=== PATIENT | female | born 2000 | race Caucasian/White ===

== ENCOUNTER 2024-03-24 23:02 | Emergency (ER) | payer BC, SELFPAY ==
[2024-03-24 23:06] VITALS: BP 110/88; PULSE 137; RESP 15; TEMP 36.4; O2SAT 99
--- NOTE | 2024-03-24 23:31 | ECG_ITS ---
Test Date: 2024-03-24 23:19:38 Measurements Intervals [place] Rate: 157 P: 66 SC: 113 QRS: 77 QRSD: 87 T: 55 QT: 309 QTc: 500 Interpretive Statements SINUS TACHYCARDIA WITH SHORT SC INTERVAL, POSSIBLE ATRIAL FLUTTER NONSPECIFIC ST & T-WAVE ABNORMALITY ABNORMAL RHYTHM ECG No previous ECG available for comparison Electronically Signed On 03-25-2024 22:51:41 [employer]PING ASSISTANT by Ana Ruelas M.D.
[2024-03-24 23:54] LABS: Basophils Absolute Auto 0.1 K/mm3 (0.0-0.1); Basophils Percent Auto 0.4 % (0.2-1.2); Eosinophils Percent Auto 0.1 % (0-4.4); Hematocrit 44.1 % (37.0-47.0); Immature Granulocyte Absolute 0.03 K/mm3 (0.00-0.031); Immature Granulocyte Percent A 0.2 % (0-0.5); Lymphocytes Absolute Auto 0.88 K/mm3 (0.9-3.2); Lymphocytes Percent Auto 6.1 % (18.3-44.2); Mean Corpuscular HGB Conc 36.3 g/dl (32-36); Mean Corpuscular Hemoglobin 30.8 pg (26-34); Mean Corpuscular Volume 84.8 fl (80-100); Mean Platelet Volume 10.1 fl (7.4-10.4); Monocytes Percent Auto 6.7 % (2.6-8.5); Neutrophils Absolute Auto 12.5 K/mm3 (1.3-6.7); Neutrophils Percent Auto 86.5 % (45.5-73.1); Platelet Count Result 290 k/mm3 (150-375); Red Cell Distribution Width 11.7 % (11.5-14.5); White Blood Count 14.4 K/mm3 (4.5-10.0)
[2024-03-24] MEDS: SODIUM CHLORIDE 0.9% IV 3,000 ML 999 ML IV CONT (23:56)
[2024-03-24] MEDS: ONDANSETRON INJ 4 MG/2 ML VIAL IV PUSH (23:56)
[2024-03-24] MEDS: FAMOTIDINE 20 MG/2 ML VIAL IV PUSH (23:56)
[2024-03-25 00:04] LABS: Alanine Aminotransferase 25 U/L (6-35); Albumin Level 4.9 g/dL (3.5-5.1); Alkaline Phosphatase 82 U/L (38-126); Anion Gap 12 mmol/L (4-12); Aspartate Amino Transferase 28 U/L (14-36); Bilirubin,Total 0.9 mg/dL (0.2-1.3); Blood Urea Nitrogen 18 mg/dL (7-17); Carbon Dioxide 22 mmol/L (22-30); Chloride 106 mmol/L (98-107); Estimated CRCL calculation 80 ml/min; Estimated Glomerular Filt Rate > 60; Glucose 149 mg/dL (65-110); Lipase 102 U/L (23-300); Sodium 140 mmol/L (137-145)
[2024-03-25 00:09] VITALS: BP 119/88; PULSE 102; RESP 14; O2SAT 100
[2024-03-25 00:31] LABS: Influenza A QL RT-PCR Negative (Negative); Influenza B QL RT-PCR Negative (Negative); RSV RNA, RT-PCR Negative (Negative); SARS-CoV-2 RNA PCR Negative (Negative)
--- NOTE | 2024-03-25 01:01 | ED_ITS ---
HPI - General Adult General Chief complaint: Nausea/Vomiting/Diarrhea Stated complaint: vomiting Time Seen by Provider: 03/24/24 23:25 History of Present Illness HPI narrative: This is a 23-year-old female presenting with 2 days of nausea vomiting diarrhea. Patient has been having URI symptoms for the last week. patient also has diffuse crampy associated with the diarrhea.Many members of her family have similar symptoms. She came to hospital because she was having intractable nausea and vomiting and diarrhea. No fevers chills, CP/JOSE DE JESUS, urinary symptoms. Related Data Allergies Allergy/AdvReac Type Severity Reaction Status Date / Time No Known Allergies Allergy Unverified 07/04/11 19:36 Exam 2 Narrative: APPEARANCE: Patient is actively vomiting Head: atraumatic. EYES: EOMI, NOSE: Atraumatic NECK: Trachea midline RESPIRATORY: No increased rate of breathing CTAB CARDIOVASCULAR: RRR, ABDOMINAL: soft, nontender no guarding or rebound MUSCULOSKELETAl: No obvious deformities NEURO: Alert. Moving 4/4 extremities SKIN:: Warm, dry. Normal color PSYCHIATRIC: Normal affect Course Vital Signs Vital signs: Vital Signs Temperature 97.6 F 03/24/24 23:06 Pulse Rate 137 H 03/24/24 23:06 Respiratory Rate 15 03/24/24 23:06 Blood Pressure 110/88 03/24/24 23:06 Pulse Oximetry 99 03/24/24 23:06 Oxygen Delivery Room Air 03/24/24 23:06 Temperature 99.4 F 03/25/24 01:51 Pulse Rate 108 H 03/25/24 01:51 Respiratory Rate 15 03/25/24 01:51 Blood Pressure 118/66 03/25/24 01:51 Pulse Oximetry 100 03/25/24 01:51 Oxygen Delivery Room Air 03/24/24 23:06 Medical Decision Making [facility] Narrative Medical decision making narrative: -Course: 23-year-old female presenting with diarrhea. Given fluid resuscitation antiemetics with improvement. Vital signs have improved Although she is still mildly tachycardic. Abdominal exam is benign. Patient now able tolerate p.o.. Patient be discharged home with antiemetics. Given return precautions for fevers, severe abdominal pain or intractable nausea vomiting. -DDX includes but is not limited to: Gastroenteritis, flu, COVID, viral syndrome colitis appendicitis gallbladder disease -Co-morbidities complicating care: anxiety -Independent interpretation of studies: labs reviewed -Dx tests considered but not ordered: CT a/p: benign abdominal exam. -Interventions:3 L normal saline, Zofran, Pepcid -Shared decision making / Disposition: discharge -RX Zofran Vital Signs Vital Signs: Vital Signs Temperature 97.6 F 03/24/24 23:06 Pulse Rate 137 H 03/24/24 23:06 Respiratory Rate 15 03/24/24 23:06 Blood Pressure 110/88 03/24/24 23:06 Pulse Oximetry 99 03/24/24 23:06 Oxygen Delivery Room Air 03/24/24 23:06 Temperature 99.4 F 03/25/24 01:51 Pulse Rate 108 H 03/25/24 01:51 Respiratory Rate 15 03/25/24 01:51 Blood Pressure 118/66 03/25/24 01:51 Pulse Oximetry 100 03/25/24 01:51 Oxygen Delivery Room Air 03/24/24 23:06 Lab Data 03/24/24 23:47 03/24/24 23:47 Labs: Lab Results 03/24/24 Range/Units 23:47 WBC 14.4 H (4.5-10.0) K/mm3 RBC 5.20 (4.2-5.4) M/mm3 Hgb 16.0 H (12.0-15.0) g/dL Hct 44.1 (37.0-47.0) % MCV 84.8 (80-100) fl MCH 30.8 (26-34) pg MCHC 36.3 H (32-36) g/dl RDW 11.7 (11.5-14.5) % Plt Count 290 (150-375) k/mm3 MPV 10.1 (7.4-10.4) fl Immature Gran % (Auto) 0.2 (0-0.5) % Neut % (Auto) 86.5 H (45.5-73.1) % Lymph % (Auto) 6.1 L (18.3-44.2) % Towner % (Auto) 6.7 (2.6-8.5) % Eos % (Auto) 0.1 (0-4.4) % Baso % (Auto) 0.4 (0.2-1.2) % Lymph # (Auto) 0.88 L (0.9-3.2) K/mm3 Towner # (Auto) 1.0 H (0.1-0.6) K/mm3 Eos # (Auto) 0.0 (0-0.3) K/mm3 Baso # (Auto) 0.1 (0.0-0.1) K/mm3 Abs Immat Gran (auto) 0.03 (0.00-0.031) K/mm3 Absolute Neuts (auto) 12.5 H (1.3-6.7) K/mm3 Absolute Nucleated RBC 0.000 (0.0-0.012) K/mm3 Nucleated RBC % 0.0 (0.0-0.2) % Sodium 140 (137-145) mmol/L Potassium 4.0 (3.4-5.0) mmol/L Chloride 106 (98-107) mmol/L Carbon Dioxide 22 (22-30) mmol/L Anion Gap 12 (4-12) mmol/L BUN 18 H (7-17) mg/dL Creatinine 0.80 (0.7-1.0) mg/dL Estim Creat Clear Calc 80 ml/min Estimated GFR > 60 (59 - ) Glucose 149 H (65-110) mg/dL Calcium 10.0 (8.4-10.2) mg/dL Total Bilirubin 0.9 (0.2-1.3) mg/dL AST 28 (14-36) U/L ALT 25 (6-35) U/L Alkaline Phosphatase 82 (38-126) U/L Total Protein 8.0 (6.3-8.2) g/dL Albumin 4.9 (3.5-5.1) g/dL Lipase 102 (23-300) U/L Influenza A (RT-PCR) Negative (Negative) Influenza B (RT-PCR) Negative (Negative) RSV (RT-PCR) Negative (Negative) SARS-CoV-2 RNA (RT-PCR) Negative (Negative) Discharge Plan Discharge Clinical Impression: Gastroenteritis Patient Disposition: Home, Self-Care Condition: Stable Instructions: Antibiotic Form, Acute Nausea and Vomiting (ED) Additional Instructions: Please take Zofran for nausea. Please make sure you are drinking plenty of fluids. If you develop severe abdominal pain or your condition is getting worse please return to the ED for re-evaluation. Patient Language: Finnish Prescriptions: New ondansetron 4 mg tablet,disintegrating 4 mg PO Q8H PRN (Reason: nausea and vomiting) Qty: 30 0RF Follow-up/Referrals: KENNY,MARISSA MURRAY [Primary Care Provider] -
[2024-03-25 01:51] VITALS: BP 118/66; PULSE 108; RESP 15; TEMP 37.4; O2SAT 100
[2024-03-25] MEDS: KETOROLAC 15 MG/ML VIAL (*BKC) IV PUSH (02:11)
[2024-03-25 02:14] LABS: BEDSIDEPREGUCG Negative (Negative)
[2024-03-25 02:45] VITALS: BP 124/66; PULSE 112; RESP 14; O2SAT 100
== END 2024-03-25 02:20 | disposition home or self-care (01) ==
PROVIDERS: Emergency Provider Emergency Medicine; PCP Nurse Practitioner Family
DX: K52.9 Noninfective gastroenteritis and colitis, unspecified (principal); Z20.822 Contact with and (suspected) exposure to COVID-19
CPT/HCPCS: 36415; 80053; 81025; 83690; 85025; 87637; 93005; 96361; 96374; 96375; 99284; J1885; J2405; J7030